=== PATIENT | male | born 1925 | race Caucasian/White ===

== ENCOUNTER → 2016-11-28 | Outpatient (CLI) | payer MEDICARE ==
[~2016-11-28] MED LIST: ALBUS; CHOL4POW4 PO; MONT10TA2 PO; ZITH250T PO
== END ==
LOC: PLAB 11:21
PROVIDERS: ATTEND Family Medicine
DX: E03.9 Hypothyroidism, unspecified (principal)
CPT/HCPCS: 36415; 84443